=== PATIENT | male | born 1950 | race Caucasian/White ===

== ENCOUNTER 2024-04-25 09:37 | Outpatient (CLI) | payer MEDICARE, BC | END 2024-04-25 23:59 | disposition home or self-care (01) | LOC: MRI02 09:37 | PROVIDERS: ATTEND Family Medicine | DX: M51.17 Intervertebral disc disorders with radiculopathy, lumbosacral region (principal); M48.061 Spinal stenosis, lumbar region without neurogenic claudication; M54.50 Low back pain, unspecified | CPT/HCPCS: 72148 ==

== ENCOUNTER 2024-09-16 13:35 | Outpatient (CLI) | payer MEDICARE, BC ==
--- NOTE | 2024-09-16 15:29 | RADIOLOGY REPORT ---
PROCEDURE: MR MRI HEAD INDICATION: VERTIGO,TINNITUS EXAM DATE: 09/16/2024 02:18 PM COMPARISON: None TECHNIQUE: MRI of the brain and IAC's with and without 15 cc clariscan intravenous contrast. FINDINGS: Limited by dental artifact. Diffusion weighted images of the brain demonstrate no evidence of acute infarction. There is no evidence of acute intracranial hemorrhage, extra-axial collection, mass effect, midline s hift, herniation or hydrocephalus. The ventricles, sulci and cisterns appear age appropriate. Mild changes of chronic microvascular ischemic disease. No abnormal enhancement. Negative IAC's. There are no signal abnormalities on the susceptibility weighted sequences. The major vascular flow voids are present. The visualized paranasal sinuses and mastoid air cells are clear. The surrounding soft tissues and o sseous structures are unremarkable. IMPRESSION: 1. No evidence of acute infarction, intracranial hemorrhage, mass effect or hydrocephalus. Mild schneider es of chronic microvascular ischemic disease. No abnormal enhancement. Negative IAC's. HS:Y
[2024-09-16] MEDS ORDERED: GADOTERATE MEGLUMINE 7.5 MMOL/15 ML VIAL IV ONE (15:30)
== END 2024-09-16 23:59 | disposition home or self-care (01) ==
LOC: MRI 13:35
PROVIDERS: ATTEND Family Medicine
DX: H81.4 Vertigo of central origin (principal); H93.19 Tinnitus, unspecified ear
CPT/HCPCS: 70553; A9575